=== PATIENT | female | born 1980 | race Caucasian/White ===

== ENCOUNTER 2022-02-24 11:49 | Emergency (ER) | payer OTHER ==
--- NOTE | 2022-02-24 12:02 | ERPHSYRPT ---
- History of Present Illness Time Seen by Provider: 02/24/22 12:02 Source: patient Exam Limitations: no limitations Physician History: This is a 41-year-old overweight white female who was carrying recliner last evening when she fell directly onto concrete pavers. She hit the central area of her buttock area. She has been taking ibuprofen and is not helping her much. Pain was worse today. She presents to the emergency department ambulating but limping in obvious discomfort. Patient is a diabetic and has a history of hypertension. Timing/Duration: yesterday Method of Injury: fall Quality: sharp, aching Back Pain Location: coccyx Back Pain Radiation: buttocks Severity of Pain-Max: moderate Severity of Pain-Current: moderate Associated Symptoms: denies symptoms Previous symptoms: no prior history Allergies/Adverse Reactions: celecoxib [From Celebrex] Allergy (Severe, Verified 02/24/22 12:12) Swelling Home Medications: Dulaglutide [Trulicity] 3 mg SQ WEEKLY 02/24/22 [History] Sitagliptin Phos/Metformin HCl [Janumet Xr 100-1,000 mg Tablet] 1 each PO DAILY 02/24/22 [History] Triamterene/Hydrochlorothiazid [Maxzide 37.5 mg-25 mg Tablet] 1 each PO DAILY 02/24/22 [History] Vortioxetine Hydrobromide [Trintellix] 10 mg PO DAILY 02/24/22 [History] Travel Risk - International Travel Have you traveled outside of the country in past 3 weeks: No - Coronavirus Screening Are you exhibiting any of the following symptoms?: No Close contact with a COVID-19 positive Pt in past 14-21 Days: No - Review of Systems Constitutional: No Symptoms Eyes: No Symptoms Ears, Nose, & Throat: No Symptoms Respiratory: No Symptoms Cardiac: No Symptoms Abdominal/Gastrointestinal: No Symptoms Genitourinary Symptoms: No Symptoms Musculoskeletal: Fall (Onto buttocks and coccyx region) Skin: No Symptoms Neurological: No Symptoms Psychological: No Symptoms Endocrine: No Symptoms Hematologic/Lymphatic: No Symptoms Immunological/Allergic: No Symptoms All Other Systems: Reviewed and Negative - Past Medical History Pertinent Past Medical History: Yes - Past Surgical History Past Surgical History: Yes - Nursing Vital Signs Nursing Vital Signs: Initial Vital Signs Temperature 97.8 F 02/24/22 12:07 Pulse Rate 94 H 02/24/22 12:07 Respiratory Rate 20 02/24/22 12:07 Blood Pressure 174/86 02/24/22 12:07 O2 Sat by Pulse Oximetry 96 02/24/22 12:07 Pain Scale Pain Intensity 8 - Physical Exam General Appearance: no apparent distress, alert, anxiety, obese Eye Exam: PERRL/EOMI, eyes nml inspection Ears, Nose, Throat Exam: normal ENT inspection, moist mucous membranes Neck Exam: normal inspection, non-tender, supple, full range of motion Respiratory Exam: airway intact, No chest tenderness, No respiratory distress Gastrointestinal Exam: No tenderness Pelvic Exam: not done Rectal Exam: not done Back Exam: normal inspection, normal range of motion, point tenderness (In the region of the sacrum and coccyx), No CVA tenderness, No vertebral tenderness Extremity Exam: normal inspection, normal range of motion, pelvis stable Neurologic Exam: alert, oriented x 3, cooperative, caramel cutter machine II-XII nml as tested, normal mood/affect, sensation nml Skin Exam: normal color, warm, dry Lymphatic Exam: No adenopathy SpO2 Interpretation: normal O2 Delivery: Room Air - Course Nursing assessment & vital signs reviewed: Yes Ordered Tests: Active Orders 24 hr Category Date Time Status PELVIS (1 OR 2 VIEWS) Stat Exams 02/24/22 12:14 Completed SACRUM AND COCCYX Stat Exams 02/24/22 12:14 Completed - Progress Progress: unchanged, pain not gone completely, re-examined Progress Note: 02/24/22 14:42 X-ray of the pelvis shows no acute fracture or dislocation. X-ray of the sacrum and coccyx shows no acute fracture or dislocation. Counseled pt/family regarding: diagnosis, need for follow-up, rad results - Departure Departure Disposition: Home Clinical Impression: Fall with no significant injury, Contusion of sacral region Condition: Stable Critical Care Time: No Referrals: Provider,Unknown [NON-STAFF PHY W/O PRIVILEGES] - Follow up/PCP as directed Additional Instructions: Ice pack to the area 2-3 times a day for the next 48 hours. Continue your ibuprofen 600 mg with food 3 times a day for the next 5 days. Follow-up with your primary care physician for persistent pain. Prescriptions: Oxycodone HCl/Acetaminophen [Percocet 5-325 mg Tablet] 1 each PO Q8H PRN PRN #6 tablet MDD 3 PRN Reason: Moderate To Severe Pain
[2022-02-24 13:03] VITALS: O2SAT 98
--- NOTE | 2022-02-24 14:37 | XRAY ---
Exam: 4 images of the sacrum and coccyx from 02/24/2022. Comparison: AP pelvis radiograph from same day. Indication: 41-year-old female fell and complains of "tailbone pain". Findings: AP, 2 angled AP images, and a lateral radiograph of the sacrum and coccyx were obtained. I see no acute fracture of either the sacrum or coccyx. There is some mild sclerosis on the iliac side of both sacroiliac joints. There is a small oval calcification projected over the left side of the L5-S1 interspace level. This could represent a bone island in this projection or perhaps a focal calcification within the L5-S1 disc. In addition, there is a 3 mm calcification projected over the lower pole of the right kidney which likely represents a nonobstructing renal stone. Impression: 1. I see no acute fracture of the sacrum or coccyx. 2. 3 mm calcification overlying the lower pole of the right kidney which likely represents a nonobstructing renal stone. 3. Other incidental findings, as discussed above.
--- NOTE | 2022-02-24 14:38 | XRAY ---
Exam: AP pelvis radiograph from 02/24/2022. Comparison: None. Indication: 41-year-old female fell and complains of "tailbone pain". Findings: AP film of the pelvis was obtained. I see no acute fracture or dislocation of the pelvis or either hip. The hip joint spaces appear symmetric, although there may be some minimal joint space narrowing. No other significant focal bone lesion is seen. The visualized bowel gas pattern appears unremarkable. Impression: 1. No acute fracture or dislocation of the pelvis or either hip is seen.
[2022-02-24 14:49] VITALS: BP 128/63; PULSE 78
== END 2022-02-24 15:03 | disposition home or self-care (01) ==
LOC: ED 11:49
DX: S30.0XXA Contusion of lower back and pelvis, initial encounter (principal); W01.198A Fall on same level from slipping, tripping and stumbling with subsequent striking against other object, initial encounter; E11.9 Type 2 diabetes mellitus without complications; I10 Essential (primary) hypertension; Z79.899 Other long term (current) drug therapy; Z79.891 Long term (current) use of opiate analgesic
CPT/HCPCS: 72170; 72220; 99283